=== PATIENT | male | born 1980 | race Caucasian/White ===

== ENCOUNTER 2017-06-14 11:14 | Emergency (ER) | payer MEDICARE, MEDICAID ==
[2017-06-14 14:07] LABS: ABS Basophils 0 10^3/ul (0-0.2); ABS Eosinophils 0.2 10^3/ul (0-0.6); ABS Lymphocytes 1.2 10^3/ul (1.0-4.8); ABS Monocytes 0.4 10^3/ul (0-0.8); ABS Neutrophils 4.6 10^3/ul (1.5-7.7); ABS Nucleated RBC 0 10^3/ul; Eosinophil % 3.1 % (0-6); Hematocrit 36 % (42-52); Hemoglobin 12.2 g/dl (14.0-18.0); Lymphocyte % 18.8 % (25-47); Mean Corpuscular HGB Conc 34 g/dl (31-36); Mean Corpuscular Hemoglobin 29 pg (27-31); Mean Corpuscular Volume 86 fL (80-94); Mean Platelet Volume 8 um3 (7.4-10.4); Nucleated Red Blood Cells % 0; Platelet Count 196 10^3/ul (150-450); Red Blood Count 4.17 10^6/ul (4.0-5.4); Red Cell Distribution Width 13 % (10.5-15); White Blood Count 6.4 10^3/ul (3.5-10.8)
[2017-06-14 14:17] LABS: INR 1.03 (0.77-1.02)
[2017-06-14 14:22] LABS: EGFR Non-African American 114.3 (>60)
[2017-06-14 18:56] VITALS: BP 112/54
[2017-06-14] MEDS ORDERED: Haloperidol TAB* 10 MG PO ONE (19:30)
[2017-06-14] MEDS ORDERED: diPHENhydraMINE PO* 50 MG PO ONE (19:31)
[2017-06-14] MEDS ORDERED: LORazepam TAB(*) 1 MG PO ONE (19:31)
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
== END 2017-06-14 20:02 | disposition home or self-care (01) ==
LOC: ED 11:14
DX: F39 Unspecified mood [affective] disorder (principal); F22 Delusional disorders
CPT/HCPCS: 36415; 80053; 80320; 80329; 82140; 83605; 84443; 85025; 85610; 85730; 86140; 99284; A9270-GY; G0480

== ENCOUNTER 2017-11-07 19:02 | Emergency (ER) | payer MEDICARE, MEDICAID ==
[2017-11-07 19:59] VITALS: BP 108/74
--- NOTE | 2017-11-07 20:13 | UC ---
Skin Complaint HPI - HPI Summary HPI Summary: Pt is accompanied by caregiver from nursing home. water plant maintenance mechanic reports that pt has erythematous, tender "patch" mid sternum. Another, Caregiver observed a spider in patients clothing and has brought it in with pt. - History of Current Complaint Chief Complaint: UCSkin Time Seen by Provider: 11/07/17 19:53 Stated Complaint: SKIN COMPLAINT Hx Obtained From: Family/Sleep Medicine Physician Hx From Patient Unobtainable Due To: Other - cognitive dysfunction Onset/Duration: Gradual Onset, Still Present Timing: Constant Onset Severity: Mild Current Severity: Mild Pain Intensity: 0 Location: Discrete - mid sternum Character: Redness, Painful Aggravating Factor(s): Touch Alleviating Factor(s): Unknown Associated Signs & Symptoms: Positive: Tenderness Related History: Insect Bite/Sting - possible - Allergy/Home Medications Allergies/Adverse Reactions: Allergies Allergy/AdvReac Type Severity Reaction Status Date / Time oseltamivir [From Tamiflu] Allergy Unknown Verified 11/07/17 19:59 Reaction Details Review of Systems Constitutional: Negative Skin: Other - erythematous area Eyes: Negative ENT: Negative Respiratory: Negative Cardiovascular: Negative Gastrointestinal: Negative Genitourinary: Negative Motor: Negative Neurovascular: Negative Musculoskeletal: Negative Neurological: Negative Psychological: Negative Is Patient Immunocompromised?: No All Other Systems Reviewed And Are Negative: Yes PMH/Surg Hx/FS Hx/Imm Hx Previously Healthy: No - see pmh and med list Neurological History: Other - cognitive dysfunction Other Neurological History: cognitive delay/dysfunction Psychological History: Other - cognitive delay/dysfucntion Other Psychological History: cognitive delay/dysfunction - Surgical History Surgical History: None - Family History Known Family History: Positive: Other - Caregivers are unaware of FHx - Social History Occupation: Disabled Lives: Residential Alcohol Use: None Substance Use Type: None Smoking Status (MU): Never Smoked Tobacco Have You Smoked in the Last Year: No Physical Exam Triage Information Reviewed: Yes Appearance: Well-Appearing Vital Signs: Initial Vital Signs Temp 98.4 F 11/07/17 19:53 Pulse 72 11/07/17 19:53 Resp 18 11/07/17 19:53 BP 108/74 11/07/17 19:53 Pulse Ox 100 11/07/17 19:53 Vital Signs Reviewed: Yes Eye Exam: Normal ENT: Positive: Hearing grossly normal Dental: Positive: Gross Decay/Caries @ Neck exam: Normal Respiratory: Positive: No respiratory distress Musculoskeletal Exam: Normal Neurological Exam: Normal Psychological Exam: Normal Skin Exam: Other - flat erythematous, mild tender, mid sternum, ~ 3 cm diameter Course/Dx - Differential Diagnoses - Skin Complaint Differential Diagnoses: Cellulitis, Other - shingles - Diagnoses Provider Diagnoses: cellulitis Discharge - Sign-Out/Discharge Documenting (check all that apply): Patient Departure - Discharge Plan Condition: Stable Disposition: HOME Prescriptions: Cephalexin CAP* [Keflex 500 CAP*] 500 mg PO Q12H #20 cap Patient Education Materials: Cellulitis (DC) Referrals: Cathleen Norton MD [Primary Care Provider] - If Needed - Billing Disposition and Condition Condition: STABLE Disposition: Home Attestation Statement User Type: Provider - I was available for consult. This patient was seen by the [facility]. The patient was not presented to, seen by, or examined by me. -Vahid
== END 2017-11-07 20:21 | disposition home or self-care (01) ==
LOC: UCCORT 19:02
DX: L03.313 Cellulitis of chest wall (principal); G31.84 Mild cognitive impairment of uncertain or unknown etiology; Z88.8 Allergy status to other drugs, medicaments and biological substances
CPT/HCPCS: 99212; G0463

== ENCOUNTER 2018-07-16 08:44 | Emergency (ER) | payer MEDICARE, MEDICAID ==
[2018-07-16 09:15] VITALS: BP 107/66
--- NOTE | 2018-07-16 09:48 | UC ---
Back Pain HPI - HPI Summary HPI Summary: 37 y/o male with hx of cerebral palsy , non-verbal mid back injury , s/p fall on bathtub this morning , hit his mid back left more than right no head injury , mild erythema, / bruising of the left mid back - History of Current Complaint Chief Complaint: UCBackPain Stated Complaint: S/P FALL-BACK INJURY Time Seen by Provider: 07/16/18 09:08 Hx Obtained From: Family/Casing Wringer Operator Onset/Duration: Sudden Onset, Lasting Days - 1, Still Present Timing: Constant Severity Initially: Mild Severity Currently: Mild Pain Intensity: 3 Pain Scale Used: 0-10 Numeric Back Pain: Is Discrete @ - left mid back Character: Unable to Describe Aggravating Factor(s): Movement Alleviating Factor(s): Nothing Associated Signs And Symptoms: Positive: Redness, Bruising. Negative: Swelling , Fever, Weakness, Numbness, Tingling, Abdominal Pain, Flank Pain, Bladder Incontinence - Allergies/Home Medications Allergies/Adverse Reactions: Allergies Allergy/AdvReac Type Severity Reaction Status Date / Time oseltamivir [From Tamiflu] Allergy Unknown Verified 07/16/18 09:16 Reaction Details PMH/Surg Hx/FS Hx/Imm Hx - Additional Past Medical History Additional PMH: seizures TBI cerebal palsy GERD eczema Endocrine History: Hypothyroidism - Surgical History Surgical History: None Surgery Procedure, Year, and Place: lumbar shunt - Family History Known Family History: Positive: Other - Caregivers are unaware of FHx - Social History Alcohol Use: None Substance Use Type: None Smoking Status (MU): Never Smoked Tobacco Have You Smoked in the Last Year: No Review of Systems All Other Systems Reviewed And Are Negative: Yes Constitutional: Positive: Negative Skin: Positive: Negative Eyes: Positive: Negative ENT: Positive: Negative Respiratory: Positive: Negative Is Patient Immunocompromised?: No Physical Exam Triage Information Reviewed: Yes Appearance: Well-Appearing, No Pain Distress, Well-Nourished Vital Signs: Initial Vital Signs Temp 98.5 F 07/16/18 09:10 Pulse 78 07/16/18 09:10 Resp 15 07/16/18 09:10 BP 107/66 07/16/18 09:10 Pulse Ox 97 07/16/18 09:10 Vital Signs Reviewed: Yes Eye Exam: Normal Eyes: Positive: Conjunctiva Clear ENT: Positive: Normal ENT inspection, Hearing grossly normal, Pharynx normal Neck: Positive: Supple, Nontender, No Lymphadenopathy Respiratory: Positive: Chest non-tender, Lungs clear, Normal breath sounds Cardiovascular: Positive: RRR, No Murmur, Pulses Normal Musculoskeletal: Positive: Other: - back exam : mild bruising left mid back, no tenderness , good ROM Back Pain Course/Dx - Differential Dx/Diagnosis Provider Diagnosis: Contusion, back Discharge - Sign-Out/Discharge Documenting (check all that apply): Patient Departure All imaging exams completed and their final reports reviewed: No Studies - Discharge Plan Condition: Stable Disposition: HOME Patient Education Materials: Contusion in Adults (ED) Referrals: Cathleen Norton MD [Primary Care Provider] - If Needed - Billing Disposition and Condition Condition: STABLE Disposition: Home
== END 2018-07-16 09:35 | disposition home or self-care (01) ==
LOC: UCCORT 08:44
DX: S20.229A Contusion of unspecified back wall of thorax, initial encounter (principal); W01.198A Fall on same level from slipping, tripping and stumbling with subsequent striking against other object, initial encounter; Y93.E1 Activity, personal bathing and showering; Y92.012 Bathroom of single-family (private) house as the place of occurrence of the external cause; G80.9 Cerebral palsy, unspecified; G40.909 Epilepsy, unspecified, not intractable, without status epilepticus; K21.9 Gastro-esophageal reflux disease without esophagitis; L30.9 Dermatitis, unspecified; E03.9 Hypothyroidism, unspecified; Z88.8 Allergy status to other drugs, medicaments and biological substances; Z96.89 Presence of other specified functional implants
CPT/HCPCS: 99211; G0463

== ENCOUNTER 2018-07-23 14:22 | Emergency (ER) | payer MEDICARE, MEDICAID ==
[2018-07-23 17:22] VITALS: BP 137/67
--- NOTE | 2018-07-29 10:00 | ED ---
Adult Trauma - HPI Summary HPI Summary: Patient is a 37-year-old male who presents to the ED from [facility] after a fall while on a recreational outing. Per EMS, patient has a history of seizure, but had no seizure activity reported. It appeared that patient had a mechanical fall. Patient denies any pain, however is fairly nonverbal. Laceration to the left eyebrow, left eye, left-sided lip and bilateral knees and right hand with abrasions. Patient remains ambulatory. Patient is at his baseline per her staff member at bedside. - History of Current Complaint Chief Complaint: EDLacSutureRecheck Stated Complaint: FALL PER EMS Time Seen by Provider: 07/23/18 14:28 Hx Obtained From: Patient Mechanism of Injury: Blunt Trauma Ambulatory at the Scene: No Onset/Duration: Started Hours Ago Onset of Pain: Hours Onset Severity: Moderate Current Severity: Moderate Pain Intensity: 0 Pain Scale Used: 0-10 Numeric Character: Aching Alleviating Factor(s): Nothing Associated Signs & Symptoms: Positive: Negative - Allergy/Home Medications Allergies/Adverse Reactions: Allergies Allergy/AdvReac Type Severity Reaction Status Date / Time oseltamivir [From Tamiflu] Allergy Unknown Verified 07/16/18 09:16 Reaction Details Home Medications: Home Medications Cariprazine (NF) [Vraylar (Nf)] 6 mg PO DAILY 07/23/18 [History Confirmed ] Emollient Combination No.40 [Cetaphil Daily Advance Ul] 1 lot TOPICAL DAILY PRN 07/23/18 [History Confirmed 07/23/18] Fluoride (Sodium) [Sodium Fluoride] 0.5 mg PO BEDTIME 07/23/18 [History Confirmed 07/23/18] Glycerin ADULT SUPP* 1 supp MN DAILY PRN 07/23/18 [History Confirmed 07/23/18] Magnesium Hydroxide LIQ* [Milk of Magnesia LIQ*] 30 ml PO DAILY PRN 07/23/18 [ History Confirmed 07/23/18] Saline NASAL SPRAY 0.65%* [Sodium Chloride 0.65% Nasal [place]*] 2 spray BOTH NARES BID 07/23/18 [History Confirmed 07/23/18] Sodium Phosphate ADULT ENEMA* [Fleet Enema*] 1 enema MN DAILY PRN 07/23/18 [ History Confirmed 07/23/18] guaiFENesin ER TAB [Mucinex*] 600 mg PO BID PRN 07/23/18 [History Confirmed 01/02] PMH/Surg Hx/FS Hx/Imm Hx Previously Healthy: Yes Endocrine/Hematology History: Reports: Hx Thyroid Disease - hypo Sensory History: Denies: Hx Deafness Neurological History: Reports: Other Neuro Impairments/Disorders - Hx TBI - Surgical History Surgery Procedure, Year, and Place: lumbar shunt - Immunization History Hx Pertussis Vaccination: No Immunizations Up to Date: Yes Infectious Disease History: No Infectious Disease History: Denies: Traveled Outside the [place] in Last 30 Days - Family History Known Family History: Positive: Other - Caregivers are unaware of FHx - Social History Occupation: Unemployed, Disabled Lives: Prison Alcohol Use: None Hx Substance Use: No Substance Use Type: Reports: None Hx Tobacco Use: No Smoking Status (MU): Never Smoked Tobacco Have You Smoked in the Last Year: No Review of Systems Constitutional: Negative Negative: Fever, Fatigue, Skin Diaphoresis Negative: Palpitations, Chest Pain Negative: Shortness Of Breath, Cough Genitourinary: Negative Positive: no symptoms reported, see HPI Negative: Arthralgia, Myalgia Positive: Other - laceration above the eyebrow, abrasion to the left side of the eye, left side of the upper lip and bilateral knees Neurological: Negative All Other Systems Reviewed And Are Negative: Yes Physical Exam Triage Information Reviewed: Yes Vital Signs On Initial Exam: Initial Vitals Temp Pulse Resp BP Pulse Ox 99.8 F 101 18 126/68 93 07/23/18 14:30 07/23/18 14:30 07/23/18 14:30 07/23/18 14:30 07/23/18 14:30 Vital Signs Reviewed: Yes Appearance: Positive: Well-Appearing, Well-Nourished, Signs of Trauma Skin: Positive: Skin Color Reflects Adequate Perfusion, Other - Abrasions to bilateral knees, to the left-sided eye, left-sided the upper lip in 2 cm laceration to the upper eyebrow. Bleeding is well-controlled Eyes: Positive: EOMI, BIJU, Conjunctiva Clear Neck: Positive: Nontender Respiratory/Lung Sounds: Positive: Clear to Auscultation, Breath Sounds Present Cardiovascular: Positive: RRR, Pulses are Symmetrical in both Upper and Lower Extremities Neurological: Positive: Sensory/Motor Intact, Alert, Oriented to Person Place, Time Psychiatric: Positive: Affect/Mood Appropriate AVPU Assessment: Alert Diagnostics - Vital Signs Vital Signs Temp Pulse Resp BP Pulse Ox 07/23/18 17:19 100.3 F 86 17 137/67 96 07/23/18 15:00 95 95 07/23/18 14:57 95 122/65 95 07/23/18 14:48 93 94 07/23/18 14:30 99.8 F 101 18 126/68 93 - Laboratory Lab Statement: Any lab studies that have been ordered have been reviewed, and results considered in the medical decision making process. Adult Trauma Course/Dx - Course Course Of Treatment: During this course of treatment, the patient's evaluated for laceration to the left eyebrow, left side of the eye and lip. CT brain and maxillofacial obtained which are both negative for any findings. There is an abrasion to the lip, hand, bilateral knees and left eye with a laceration just above the left eyebrow which is approximately 2 cm in length and 0.3 cm in depth as well as 0.5 cm in width. 7 sutures placed using 5-0 Prolene after cleansing wound thoroughly using sterile technique. Lidocaine without epi used as local anesthetic with good effect. Patient will have sutures removed in 5-7 days. Patient is at his baseline per staff. He is okay for discharge at this time. - Diagnoses Differential Diagnosis/HQI/PQRI: Positive: Laceration(s) Provider Diagnoses: Laceration, Trauma Discharge - Sign-Out/Discharge Documenting (check all that apply): Patient Departure Patient Received Moderate/Deep Sedation with Procedure: No - Discharge Plan Condition: Stable Disposition: HOME Patient Education Materials: Care For Your Stitches (ED), Laceration (ED) Referrals: Cathleen Norton MD [Primary Care Provider] - Additional Instructions: Suture removal in 6-7 days Keep antibiotic ointment applied x 3-4 days keep bandage applied x 3-4 days Then, leave open to air - Billing Disposition and Condition Condition: STABLE Disposition: Home
== END 2018-07-23 17:19 | disposition home or self-care (01) ==
LOC: ED 14:22
DX: S01.112A Laceration without foreign body of left eyelid and periocular area, initial encounter (principal); W19.XXXA Unspecified fall, initial encounter; Y92.9 Unspecified place or not applicable; S60.511A Abrasion of right hand, initial encounter; S80.212A Abrasion, left knee, initial encounter; S80.211A Abrasion, right knee, initial encounter
CPT/HCPCS: 12001; 70450; 70486; 99282